=== PATIENT | female | born 1975 | race African-American/Black ===

== ENCOUNTER 2017-02-20 10:02 | Emergency (ER) | payer OTHER ==
[~2017-02-20] VITALS: Ht 165.1 cm; Wt 85.5 kg
[~2017-02-20 10:02] MED LIST: AMLODIPINE-BEN1 EACH PO; CITRATE OF MAG296 ML PO; FLOMAX0.4 MG PO; HYDROCHLOROTHIA25 MG PO; INDOCIN25 MG PO; KEFLEX500 MG PO; LORTAB 5-325 M1 EACH PO; NAPROSYN500 MG PO; NORCO 10/3251 TABLET PO; PERCOCET 5/31 TABLET PO; SILVADENE20 GM TP; VICOPROFEN1 TABLET PO; ZOFRAN ODT4 MG PO
[2017-02-20 10:09] VITALS: BP 176/107
[2017-02-20] MEDS ORDERED: MOTRIN600 MG PO (10:37)
[2017-02-20] MEDS ORDERED: SKELAXIN800 MG PO (10:37)
== END 2017-02-20 11:11 | disposition home or self-care (01) ==
LOC: EME 10:02
DX: S29.012A Strain of muscle and tendon of back wall of thorax, initial encounter (principal); V49.40XA Driver injured in collision with unspecified motor vehicles in traffic accident, initial encounter; I10 Essential (primary) hypertension; F17.200 Nicotine dependence, unspecified, uncomplicated
CPT/HCPCS: 99281; 99284

== ENCOUNTER 2017-11-08 00:39 | Emergency (ER) | payer OTHER ==
[~2017-11-08] VITALS: Ht 152.4 cm; Wt 84.9 kg
[~2017-11-08 00:39] MED LIST changes: +MOTRIN600 MG PO; +SKELAXIN800 MG PO
[2017-11-08 01:03] VITALS: BP 196/99
[2017-11-08 01:23] LABS: ADD MIUA? YES; BILIRUBIN NEGATIVE; BLOOD LARGE; COLOR STRAW ((YELLOW)); GLUCOSE (STRIP) NEGATIVE; KETONES NEGATIVE; LEUKOCYTES TRACE; NITRITE NEGATIVE; PROTEIN (STRIP) NEGATIVE; SPECIFIC GRAVITY 1.012 (1.000-1.030); UROBILINOGEN 0.2 MG/DL (0.2-1.0)
[2017-11-08 01:34] LABS: HEMATOCRIT 38.8 % (36.0-46.0); MCH 30.2 PG (29.0-34.0); MCHC 34.3 G/DL (30.0-36.0); MCV 88.2 FL (83-99); RBC DIS.WIDTH-CV 11.9 % (11.8-14.6); RBC DIS.WIDTH-SD 38.5 % (39-53); WHITE BLOOD COUNT 7.5 K/uL (4.1-10.2)
[2017-11-08 01:45] LABS: CHLORIDE 106 mEq/L (99-109); POTASSIUM 3.7 mEq/L (3.7-5.4); SODIUM 138 mEq/L (136-147)
[2017-11-08 01:47] LABS: GLUCOSE 126 mg/dL (70-99)
[2017-11-08 01:49] LABS: ANION GAP 9 MEQ/L (2-14); TOTAL BILIRUBIN 0.6 mg/dL (0.0-1.0)
[2017-11-08 01:51] LABS: ALKALINE PHOSPHATASE 81 IU/L (3-129); GFR ESTIMATE (CALCULATED) > 59 mL/min/
[2017-11-08 01:52] LABS: UREA NITROGEN (BUN) 12 mg/dL (9-23)
[2017-11-08 01:57] LABS: BACTERIA RARE /HPF; EPITHELIAL CELLS RARE /HPF; MUCUS TRACE /LPF; RED BLOOD CELLS TNTC /HPF (0-5); UCUL ADDED? YES
[2017-11-08 02:02] LABS: QUANTITATIVE HCG < 4.0 MIU/ML
[2017-11-08 03:01] LABS: MEAN PLAT.VOLUME 12.2 uM^3 (9.5-12.4); PLAT.SUFFICIENCY ADEQUATE; PLATELET COUNT 302 K/uL (156-360)
== END 2017-11-08 03:36 | disposition left against medical advice (07) ==
LOC: EME 00:39
DX: R10.9 Unspecified abdominal pain (principal); R11.2 Nausea with vomiting, unspecified; R06.02 Shortness of breath; Z53.21 Procedure and treatment not carried out due to patient leaving prior to being seen by health care provider
CPT/HCPCS: 80053; 81003; 84702; 85027; 87077; 87086; 87186

== ENCOUNTER 2017-11-10 22:54 | Inpatient (IN) | payer OTHER ==
[~2017-11-10] VITALS: Ht 152.4 cm; Wt 81.5 kg
[2017-11-10 23:37] LABS: HEMATOCRIT 33.8 % (36.0-46.0); MCH 29.5 PG (29.0-34.0); MCV 86.7 FL (83-99); RBC DIS.WIDTH-CV 12.4 % (11.8-14.6); RBC DIS.WIDTH-SD 39.4 % (39-53)
[2017-11-10 23:43] LABS: CHLORIDE 99 mEq/L (99-109); POTASSIUM 3.9 mEq/L (3.7-5.4); SODIUM 133 mEq/L (136-147)
[2017-11-10 23:46] LABS: GLUCOSE 108 mg/dL (70-99)
[2017-11-10 23:47] LABS: ANION GAP 13 MEQ/L (2-14)
[2017-11-10 23:49] LABS: TOTAL BILIRUBIN 1.8 mg/dL (0.0-1.0)
[2017-11-10 23:51] LABS: ALKALINE PHOSPHATASE 115 IU/L (3-129); GFR ESTIMATE (CALCULATED) 20 mL/min/; UREA NITROGEN (BUN) 44 mg/dL (9-23)
[2017-11-10 23:53] LABS: LIPASE 3 U/L (1.0-51.0)
[2017-11-10 23:55] LABS: TROP-I INTERPRETATION NEGATIVE; TROPONIN-I 0.02 ng/mL (0.0-0.30)
[2017-11-10 23:58] LABS: QUANTITATIVE HCG < 4.0 MIU/ML
[2017-11-11 00:17] LABS: HEMATOLOGY COMMENT 1 SN; PLAT.SUFFICIENCY ADEQUATE; PLATELET COUNT UNABLE TO REPORT K/uL (156-360)
[2017-11-11 00:18] LABS: ADD MIUA? YES; BILIRUBIN NEGATIVE; BLOOD MODERATE; COLOR YELLOW ((YELLOW)); GLUCOSE (STRIP) 50; KETONES NEGATIVE; LEUKOCYTES LARGE; NITRITE NEGATIVE; PROTEIN (STRIP) 100; SPECIFIC GRAVITY 1.009 (1.000-1.030)
[2017-11-11 00:35] LABS: BACTERIA 1+ /HPF; EPITHELIAL CELLS RARE /HPF; MUCUS NONE SEEN /LPF; UCUL ADDED? YES; WHITE BLOOD CELLS TNTC /HPF (0-5)
[2017-11-11 00:39] LABS: CREATINE KINASE 22 IU/L (1-294)
[2017-11-11] MEDS ORDERED: OXYCONTIN15 MG PO (01:07)
[2017-11-11] MEDS ORDERED: GABAPENTIN300 MG PO (01:08)
[2017-11-11] MEDS ORDERED: OXYCODONE HCL10 MG PO (01:08)
[2017-11-11] MEDS ORDERED: IBUPROFEN800 MG PO (01:08)
[2017-11-11 02:22] VITALS: BP 124/61
[2017-11-11 07:01] VITALS: BP 120/70
[2017-11-11 10:59] VITALS: BP 118/72
[2017-11-11 15:13] VITALS: BP 138/76
[2017-11-11 19:20] VITALS: BP 140/75
[2017-11-11 23:39] VITALS: BP 138/72
[2017-11-12 08:04] LABS: HEMATOCRIT 33.2 % (36.0-46.0); MCH 29.3 PG (29.0-34.0); MCHC 33.1 G/DL (30.0-36.0); MCV 88.5 FL (83-99); RBC DIS.WIDTH-CV 12.8 % (11.8-14.6); RBC DIS.WIDTH-SD 42.1 % (39-53); RED BLOOD COUNT 3.75 M/uL (3.80-5.20); WHITE BLOOD COUNT 12.7 K/uL (4.1-10.2)
[2017-11-12 08:30] VITALS: BP 183/85
[2017-11-12 08:33] LABS: ANION GAP 9 MEQ/L (2-14); CHLORIDE 106 MEQ/L (99-109); SAMPLE HEMOLYSIS CHECK 0; SAMPLE ICTERIC CHECK 0; SAMPLE LIPEMIA CHECK 0; SODIUM 137 MEQ/L (136-147)
[2017-11-12 08:35] LABS: PLAT.SUFFICIENCY ADEQUATE; PLATELET CLUMPS PRESENT - PLATELET COUNT APPEARS ADQ.; PLATELET COUNT UNABLE TO REPORT K/uL (156-360)
[2017-11-12 08:38] LABS: GFR ESTIMATE (CALCULATED) 35 mL/min/; GLUCOSE 134 mg/dL (70-99); UREA NITROGEN (BUN) 30 mg/dL (9-23)
[2017-11-12 12:34] VITALS: BP 180/78
[2017-11-12 15:00] VITALS: BP 140/65
[2017-11-12 18:45] VITALS: BP 169/76
[2017-11-12 23:34] VITALS: BP 155/72
[2017-11-13 03:10] VITALS: BP 156/74
[2017-11-13 07:05] VITALS: BP 185/91
[2017-11-13 07:24] LABS: HEMATOCRIT 32.1 % (36.0-46.0); MCV 87.9 FL (83-99); MEAN PLAT.VOLUME 12.1 uM^3 (9.5-12.4); RBC DIS.WIDTH-CV 12.8 % (11.8-14.6); RBC DIS.WIDTH-SD 40.9 % (39-53); RED BLOOD COUNT 3.65 M/uL (3.80-5.20); WHITE BLOOD COUNT 13.4 K/uL (4.1-10.2)
[2017-11-13 07:25] LABS: PLATELET COUNT 198 K/uL (156-360)
[2017-11-13 07:46] LABS: ANION GAP 8 MEQ/L (2-14); CHLORIDE 105 MEQ/L (99-109); GFR ESTIMATE (CALCULATED) > 59 mL/min/; GLUCOSE 102 mg/dL (70-99); POTASSIUM 4.1 MEQ/L (3.7-5.4); SAMPLE HEMOLYSIS CHECK 0; SAMPLE ICTERIC CHECK 0; SAMPLE LIPEMIA CHECK 0; SODIUM 137 MEQ/L (136-147); UREA NITROGEN (BUN) 16 mg/dL (9-23)
[2017-11-13] MEDS ORDERED: AMLODIPINE BESY10 MG PO ×3 (12:39→13:21)
[2017-11-13] MEDS ORDERED: CEFDINIR300 MG PO ×3 (12:39→13:21)
[2017-11-13 13:31] VITALS: BP 189/86
== END 2017-11-13 13:46 | disposition home or self-care (01) | DRG 684 ==
LOC: EME → EDBD 22:54 → EDOF 11-11 00:58 → 2EAST 11-11 00:58 → ENRESERV 11-11 01:00 → 2EAST 11-11 02:07
PROVIDERS: Emergency Medicine Emergency Medical Services; Hospitalist
DX: N17.9 Acute kidney failure, unspecified (principal); N10 Acute pyelonephritis; B96.20 Unspecified Escherichia coli [E. coli] as the cause of diseases classified elsewhere; I10 Essential (primary) hypertension; G89.29 Other chronic pain; M54.5 Low back pain; F12.90 Cannabis use, unspecified, uncomplicated; F17.210 Nicotine dependence, cigarettes, uncomplicated; Z79.891 Long term (current) use of opiate analgesic; Z87.440 Personal history of urinary (tract) infections
CPT/HCPCS: 74176; 76770; 80048; 80053; 81003; 82550; 83605; 83690; 84484; 84702; 85027; 87040; 87077; 87086; 87186; 93005; 99281; 99285; J0696; J0780; J1644; J2270; J2405; J7030; J7040

== ENCOUNTER 2018-04-20 09:18 | Emergency (ER) | payer OTHER ==
[~2018-04-20] VITALS: Ht 152.4 cm; Wt 91.1 kg
[~2018-04-20 09:18] MED LIST changes: +AMLODIPINE BESY10 MG PO; +CEFDINIR300 MG PO; +GABAPENTIN300 MG PO; +IBUPROFEN800 MG PO; +OXYCODONE HCL10 MG PO; +OXYCONTIN15 MG PO
[2018-04-20 09:52] LABS: MCH 29.6 PG (29.0-34.0); MCHC 33.3 G/DL (30.0-36.0); MCV 88.8 FL (83-99); RBC DIS.WIDTH-CV 12.8 % (11.8-14.6); RBC DIS.WIDTH-SD 41.7 % (39-53); RED BLOOD COUNT 4.39 M/uL (3.80-5.20); WHITE BLOOD COUNT 6.4 K/uL (4.1-10.2)
[2018-04-20 10:03] LABS: ALBUMIN 4.1 g/dL (3.2-4.8); CHLORIDE 104 mEq/L (99-109); POTASSIUM 4.1 mEq/L (3.7-5.4); SODIUM 138 mEq/L (136-147)
[2018-04-20 10:06] LABS: GLUCOSE 107 mg/dL (70-99); TOTAL PROTEIN 7.9 g/dL (6.4-8.3)
[2018-04-20 10:07] LABS: TOTAL BILIRUBIN 0.6 mg/dL (0.0-1.0)
[2018-04-20 10:09] LABS: ALKALINE PHOSPHATASE 87 IU/L (3-129); CREATININE 0.7 mg/dL (0.6-1.3); GFR ESTIMATE (CALCULATED) > 59 mL/min/
[2018-04-20 10:10] LABS: UREA NITROGEN (BUN) 10 mg/dL (9-23)
[2018-04-20 10:11] LABS: AST (GOT) 17 IU/L (2-34)
[2018-04-20 10:12] LABS: ALT (GPT) 14 IU/L (3-49)
[2018-04-20 10:19] LABS: QUANTITATIVE HCG 1378.6 MIU/ML
[2018-04-20 10:33] LABS: PLAT.SUFFICIENCY ADEQUATE; PLATELET COUNT 333 K/uL (156-360)
[2018-04-20 10:40] LABS: APPEARANCE CLEAR ((CLEAR)); BILIRUBIN NEGATIVE; BLOOD SMALL; COLOR YELLOW ((YELLOW)); GLUCOSE (STRIP) NEGATIVE; KETONES NEGATIVE; LEUKOCYTES NEGATIVE; NITRITE POSITIVE; PROTEIN (STRIP) NEGATIVE; SPECIFIC GRAVITY 1.018 (1.000-1.030); UROBILINOGEN 0.2 MG/DL (0.2-1.0)
[2018-04-20 10:44] LABS: BACTERIA RARE /HPF; EPITHELIAL CELLS RARE /HPF; MUCUS TRACE /LPF; RED BLOOD CELLS 0-5 /HPF (0-5); UCUL ADDED? NO; WHITE BLOOD CELLS 0-5 /HPF (0-5)
[2018-04-20 10:56] LABS: LIPASE 29 U/L (1.0-51.0)
[2018-04-20] MEDS ORDERED: ZOFRAN4 MG PO (12:54)
[2018-04-20] MEDS ORDERED: KEFLEX500 MG PO (12:54)
[2018-04-20 13:54] VITALS: BP 175/90
== END 2018-04-20 13:56 | disposition left against medical advice (07) ==
LOC: EME 09:18
DX: O23.41 Unspecified infection of urinary tract in pregnancy, first trimester (principal); O10.911 Unspecified pre-existing hypertension complicating pregnancy, first trimester; Z87.440 Personal history of urinary (tract) infections; Z87.442 Personal history of urinary calculi; O99.331 Smoking (tobacco) complicating pregnancy, first trimester; F17.200 Nicotine dependence, unspecified, uncomplicated; Z88.5 Allergy status to narcotic agent; Z88.6 Allergy status to analgesic agent
CPT/HCPCS: 76801; 80053; 81003; 83690; 84702; 85027; 99281; 99284